=== PATIENT | male | born 1970 | race Caucasian/White ===

== ENCOUNTER 2019-06-25 07:57 | Day surgery (SDC) | payer BC ==
[2019-06-25] MEDS ORDERED: NA CHLORIDE 0.9% 1,000 ML ONE (08:07)
[2019-06-25] MEDS ORDERED: CIPROFLOXACIN 400mg IV 400 MG/200 ML BAG IV ONE (08:08)
[2019-06-25] MEDS ORDERED: PROPOFOL 200 MG/20 ML VIAL IV ONE ×2 (08:13→09:49)
[2019-06-25] MEDS ORDERED: FENTANYL CITR 100 MCG/2 ML ONE ×2 (08:13→10:38)
[2019-06-25] MEDS ORDERED: ROCURONIUM 50 MG/5 ML VIAL IV ONE (08:14)
[2019-06-25] MEDS ORDERED: dexAMETHasone 4 MG/ML VIAL ONE (08:14)
[2019-06-25] MEDS ORDERED: ONDANSETRON 4 MG/2 ML VIAL ONE (08:14)
[2019-06-25] MEDS ORDERED: LIDOCAINE 2% MPF 5 ML VIAL ONE ×2 (08:14→10:38)
[2019-06-25] MEDS ORDERED: MIDAZOLAM HCL 2 MG/2 ML INJ ONE (08:14)
[2019-06-25] MEDS ORDERED: EPHEDRINE SULF 50 MG/ML VIAL ONE (09:46)
[2019-06-25] MEDS ORDERED: GLYCOPYRROLATE 0.2 MG/ML SYR ONE (10:36)
[2019-06-25] MEDS ORDERED: NEOSTIGMINE 1 MG/ML -10 ML VIAL ONE (10:38)
--- NOTE | 2019-06-25 10:47 | P.BOP ---
Preoperative diagnosis: tender incarcerated bilateral inguinal hernias Postoperative diagnosis: same Primary procedure: 1. Laparoscopic repair of right inguinal hernia with mesh Secondary procedure: 2. Laparoscopic repair of left inguinal hernia with mesh [employer] Registrar: Jaclyn Arevalo) Estimated blood loss: <10cc Specimen: none Findings: as above Anesthesia: General Complications: None Drain(s): Other Transferred to: Recovery Room Condition: Good
[2019-06-25] MEDS: HYDROMORPHONE HCL 1 MG/ML INJ ONE ×2 (11:11→11:16)
[2019-06-25] MEDS ORDERED: HYDROCODONE/APAP 10/325 TAB ONE (12:00)
[2019-06-25 12:10] VITALS: BP 103/55; TEMP 97.2; O2SAT 92
--- NOTE | 2019-06-25 18:44 | DS ---
Date of Discharge: 06/25/2019 Diagnosis: Bilateral inguinal hernias. Procedures: Laparoscopic repair of right and left inguinal hernias with mesh. Disposition: Home. Activity: As tolerated. No heavy lifting. Followup: Follow up in my office in 1 week. Call for appointment [phone]. Keep the area dry for 48 hours, then may shower. Keep Steri-Strip intact. Patient already taking Vi codin #10 q.4 hours since patient had procedure several days ago, but he only have 3 left and he pref erred the same one, so we wrote for that prescription with Bactrim DILIP p.o. b.i.d. LYNNE/ROBIN Voice ID: [id number] Report ID: [id number]
--- NOTE | 2019-06-26 00:51 | OP ---
Date of Procedure: 06/25/2019 Surgeon: Choco Bell MD Sort Worker: Jaclyn uRbio. Preoperative Diagnoses: Tender bilateral incarcerated inguinal hernias and morbid obesity. Postoperative Diagnoses: Tender bilateral incarcerated inguinal hernias and morbid obesity. Procedures: 1.Laparoscopic repair of right inguinal hernia with mesh. 2.Laparoscopic repair of left inguinal hernia with mesh. Anesthesia: General plus local. Findings: Incarcerated omentum. Indications: This is a case of a male, who comes to us with bilateral inguinal pain. He has been se en also by urologist and he has other pathology in the scrotum, including varicocele. Still he is se nt to our office and the patient continues with tenderness because the patient has incarcerated ingui nal hernia. The benefits, alternatives, and risks of repair laparoscopic versus open with mesh place ment were fully explained to the patient, which include, but are not limited to infection, bleeding, damage to adjacent structures, anesthesia complication, recurrence, chronic pain, chronic numbness, d amage to adjacent structures, NH, and even . He also understands this may not relieve any sympt oms. He might need more than one surgical intervention, he understood and signed a consent. Description Of Procedure: Patient was brought to the operating room, placed in supine position. Ane sthesia was done without complication. A time-out was called. Bilateral abdomen and inguinal area w ere prepped and draped in a sterile fashion. Marcaine 0.5% was injected for local anesthetic, follow ed by sharp incision of the skin in the infraumbilical region. Incision was carried down to fascia, until we found the anterior rectus sheath. Patient was placed in Trendelenburg. Anterior rectus she ath was opened and the muscle retracted laterally to expose the posterior rectus sheath. The extrape ritoneal space was gently developed with blunt dissection and a balloon tipped space maker trocar. O nce we placed the angled laparoscope, we inflated balloon under direct visualization to create the ex traperitoneal space. At that moment, we removed the balloon and insufflate the area. A 5 mm trocar was placed in the area of the pubis symphysis and another 5 midway between the first and the second o ne. The preperitoneal space was gently developed by exposing the inferior epigastric vessels and alfred ping them anterior. Michael ligament was dissected laterally to the junction with the iliac veins. D issection continued inferiorly to the iliopubic tract, avoiding damage to the femoral branch of the g enitofemoral nerve, lateral femoral cutaneous nerve. The cord structures on the right side were care fully skeletonized. The hernia sac was identified, removed from the cord structures gently and reduc ed into the peritoneal cavity. Once we were in that side we moved to the opposite side the right theron e, we had the same findings, the same dissection protected spermatic cord at all times. The hernia s ac was also retracted into the peritoneal cavity. At that moment I proceeded to introduce a 3D mesh medium on the left side first a line in the working space to completely cover direct indirect spaces. The mesh was secured laterally and superior to the iliopubic tract and inferior and medial to Coope r's ligament with the help of SorbaFix on each side. The same was done on the opposite hernia. Secu red the same way. No bleeding. After securing hemostasis and spraying local anesthetic over the are a, we proceeded to hold the lower edge of the mesh in place while we deflated the area under direct v isualization making sure that the hernia sac is still reduced into the peritoneal cavity. Trocars we re removed. Anterior rectus sheath was closed with #1 Vicryl and the skin in subcuticular fashion wi th 3-0 chromic and Steri-Strips on top. Sponge count and instrument counts were correct. Patient to lerated the procedure well. Patient was sent to recovery room in stable condition. At the end of e case, the testicles were in the scrotum. LYNNE/ROBIN Voice ID: [id number] Report ID: [id number]
== END 2019-06-25 13:35 | disposition home or self-care (01) ==
LOC: OR 07:57
PROVIDERS: ATTEND Surgery
PROC: 0YUA4JZ Supplement Bilateral Inguinal Region with Synthetic Substitute, Percutaneous Endoscopic Approach (ICD-10-PCS; principal; 2019-06-25 10:30)
DX: K40.00 Bilateral inguinal hernia, with obstruction, without gangrene, not specified as recurrent (principal); E11.9 Type 2 diabetes mellitus without complications; I10 Essential (primary) hypertension; I51.9 Heart disease, unspecified; G47.33 Obstructive sleep apnea (adult) (pediatric); E78.00 Pure hypercholesterolemia, unspecified; E66.01 Morbid (severe) obesity due to excess calories; F17.210 Nicotine dependence, cigarettes, uncomplicated; Z88.0 Allergy status to penicillin
CPT/HCPCS: 36415; 82962 ×2; 49650; J2704; J2710; J2250; J3010 ×2; J1170; J7030; J2405; J0744